=== PATIENT | male | born 1960 | race Two or more races ===

== ENCOUNTER 2024-01-29 13:45 | Outpatient (CLI) | payer OTHER ==
[2024-01-29 14:59] LABS: CREATININE SERUM 0.9 mg/dL (0.70-1.30)
== END 2024-01-29 13:49 | disposition home or self-care (01) ==
LOC: LAB 13:45
PROVIDERS: ATTEND Radiology Diagnostic Radiology
DX: R10.2 Pelvic and perineal pain (principal); E13.42 Other specified diabetes mellitus with diabetic polyneuropathy

== ENCOUNTER 2024-01-30 09:39 | Outpatient (CLI) | payer OTHER | END 2024-01-30 09:56 | disposition home or self-care (01) | LOC: TOM 09:39 | PROVIDERS: ATTEND Internal Medicine | DX: N18.2 Chronic kidney disease, stage 2 (mild) (principal); E27.9 Disorder of adrenal gland, unspecified | CPT/HCPCS: 72197; 74183; Q9965; 72196; 74182 ==

== ENCOUNTER 2025-02-24 07:56 | Outpatient (CLI) | payer OTHER | END 2025-02-24 08:03 | disposition home or self-care (01) | LOC: TOM 07:56 | DX: D35.02 Benign neoplasm of left adrenal gland (principal) | CPT/HCPCS: 74178; Q9965 ==